=== PATIENT | female | born 1950 | race Caucasian/White ===

== ENCOUNTER 2016-12-09 05:35 | Inpatient (IN) | payer OTHER, MEDICARE ==
[2016-12-09] VITALS (11 sets, daily range): BP systolic 101–152; BP diastolic 52–87; PULSE 67–87; RESP 18–20; TEMP 97.4–98.9; O2SAT 94–97
[~2016-12-09] VITALS: Ht 142.2 cm; Wt 88.5 kg
[~2016-12-09 05:35] MED LIST: ALPR.25 PO; ATEN50TA PO; DULO1CAP PO; ENAL20TA PO; GABA300C5 PO; GLIP5TAB8 PO; HYDR-3516 PO; LEVO-168 PO; METF1000 PO; MILN50 PO; ROSU40 PO
[2016-12-09] MEDS: LACTATED RINGER'S 1000 ML IV SCH (06:15)
[2016-12-09] MEDS ORDERED: INSULIN HUMAN REGULAR 1,000 UNITS/10 ML VIAL SQ PRN (06:30)
[2016-12-09] MEDS ORDERED: METOPROLOL TARTRATE 25 MG TAB PO PRN (06:30)
[2016-12-09] MEDS ORDERED: SODIUM CHLORID 0.9% 500 ML IV SCH (06:30)
[2016-12-09] MEDS ORDERED: PROTAMINE SULFATE 50 MG/5 ML VIAL ONE (06:38)
[2016-12-09] MEDS ORDERED: HEPARIN SODIUM - IV 10,000 UNITS/10 ML VIAL ONE (06:38)
[2016-12-09] MEDS ORDERED: HEPARIN SODIUM - SQ 10,000 UNITS/ML VIAL ONE (06:38)
[2016-12-09] MEDS ORDERED: VANCOMYCIN HCL 1000 MG VIAL ONE (06:38)
[2016-12-09 07:07] LABS: BACTERIA, URINE RARE /hpf; BLOOD, URINE NEG (NEG); GLUCOSE,URINE NEG (NEG); KETONE, URINE NEG (NEG); MUCUS URINE FEW /lpf (OCC); NITRITE,URINE NEG (NEG); SQUAMOUS EPITHELIAL CELL URINE 1 /hpf (0-5); URINE COLOR YELLOW (YELLW/STRAW)
[2016-12-09 07:09] LABS: COMMENT (UR) CULT NOT INDICATED; CULTURE IF INDICATED CULT NOT INDICATED
[2016-12-09] MEDS ORDERED: FAMOTIDINE 20 MG/2 ML VIAL ONE (07:13)
[2016-12-09] MEDS ORDERED: APREPITANT 40 MG CAP ONE (07:14)
[2016-12-09] MEDS ORDERED: VANCOMYCIN 1000 MG in NS IRR BTL 1000 ML IRRIGATION SCH (07:15)
[2016-12-09] MEDS: VANCOMYCIN IV SCH ×4 (07:26→07:44)
[2016-12-09] MEDS: NS IV SCH ×4 (07:26→07:44)
[2016-12-09] MEDS ORDERED: LIDOCAINE HCL 2% 20 ML VIAL ONE ×2 (08:02→08:03)
[2016-12-09] MEDS ORDERED: BUPIVACAINE HCL PF 0.5% 30 ML VIAL ONE (11:52)
[2016-12-09] MEDS ORDERED: ALPRAZolam 0.25 MG TAB PO PRN (12:15)
[2016-12-09] MEDS ORDERED: GLUCAGON 1 MG/ML VIAL OTHER PRN (12:15)
[2016-12-09] MEDS ORDERED: MAGNESIUM HYDROXIDE SUSP 30 ML CUP PO PRN (12:15)
[2016-12-09] MEDS ORDERED: DEXTROSE 50% IN WATER 50 ML VIAL(D50) IV PUSH PRN (12:15)
[2016-12-09] MEDS ORDERED: ACETAMINOPHEN 325 MG TAB PO PRN (12:15)
[2016-12-09] MEDS ORDERED: Post-op Orders (for Pharmacy) MISC OTHER ONE (12:15)
[2016-12-09] MEDS ORDERED: ONDANSETRON HCL 4 MG/2 ML VIAL IV PUSH PRN (12:15)
[2016-12-09] MEDS ORDERED: DO NOT ADM ANY ANTICOAGULANT DRUGS XX PRN (12:36)
--- NOTE | 2016-12-09 12:38 | PD.OP ---
cc: Patricia Alcantar MD; Katerina Ragsdale MD Operative Report Date of Surgery: Dec 09, 2016 Preoperative Diagnosis: (1) Skin erosion due to defibrillator lead Postoperative Diagnosis: (1) Skin erosion due to defibrillator lead Procedure: Removal of pulse generator and lead extraction of RA and RV leads Removal of capsule and pocket closure Placement of left femoral venous sheath. Anesthesia: Dr. Luna Surgeon: Patricia Alcantar Sample Sewer(s): EVANGELINA Mayfield Operation and Findings: The risks, benefits, complications, treatment options, and expected outcomes were discussed with the patient. The possibilities of reaction to medication, pulmonary aspiration, perforation of viscus, bleeding, recurrent infection, the need for additional procedures, failure to diagnose a condition, and creating a complication requiring transfusion or operation were discussed with the patient. The patient concurred with the proposed plan, giving informed consent. The site of surgery properly noted/marked. The patient was taken to the operating room, identified as Mildred Guthrie, and the procedure verified as pulse generator and lead extraction, femoral sheath placement. A Time Out was held and the above information confirmed. Standard monitoring lines and Magallanes catheter were placed. General anesthesia was induced. The patient was prepped and draped in a sterile fashion. Initially, left femoral venous access was acquired using a Seldinger percutaneous technique. a 7 F sheath was placed followed by an Amplatz wire to the right IJ under fluoroscopic guidance. The pocket incision was made along the old scar, and electrocautery was used to dissect out the leads and the pocket of the pulse generator. The generator was delivered into the field and the leads were removed. The atrial lead was unscrewed and both leads were prepared for extraction by cutting off the leads and positioning a locking device in each lead. Initially, the atrial lead was treated using a 9F Tightrail cutter followed by a shorter 11F device to break up adhesions under the clavicle. The leads were bound together in the innominate vein and both leads were treated to free the atrial lead which was removed in its entirety. The RV lead was problematic with numerous adhesions along its tract. Ultimately, a 13F Tightrail was used to get into the RV and release the tined lead from the RV. Hemostasis was controlled with direct pressure. The capsule was excised completely and hemostasis obtained. The wound was closed in layers to obliterate the pocket with running 2-0 Vicryl suture. The subcutaneous tissue was closed using a running 2-0 Vicryl suture. The skin was closed with 4-0 Monocryl. Sterile dressings were placed. The venous wire and sheath were pulled at the end of the procedure as well. At the end of the operation, all sponge, instruments, and needle counts were correct. The patient was transferred to the PACU in stable condition. Findings: Difficult extraction due to many adhesions in the tract and between the leads. Specimens: capsule Patricia Alcantar MD Dec 09, 2016 12:37
[2016-12-09] MEDS ORDERED: MIDAZOLAM HCL 2 MG/2 ML VIAL ONE (12:43)
[2016-12-09] MEDS ORDERED: fentaNYL CITRATE 250 MCG/5 ML AMP ONE (12:43)
[2016-12-09] MEDS ORDERED: PROPOFOL 200 MG/20 ML AMP IV ONE (12:50)
[2016-12-09] MEDS ORDERED: ONDANSETRON HCL 4 MG/2 ML VIAL IV PUSH ONE (12:50)
[2016-12-09] MEDS ORDERED: LACTATED RINGER'S 1000 ML INJ 2,000 ML IV ONE (12:50)
[2016-12-09] MEDS ORDERED: ePHEDrine/NS 50 MG/5 ML SYR IV ONE (12:50)
[2016-12-09] MEDS ORDERED: PHENYLEPH/NS 1000 MCG/10 ML SYR IV ONE (12:50)
[2016-12-09] MEDS ORDERED: NEOSTIGMINE 3 MG/3 ML SYR IV ONE (12:50)
[2016-12-09] MEDS: SODIUM CHLOR 0.9% 1000 ML INJ 1,000 ML IV SCH ×2 (13:00→23:41)
--- NOTE | 2016-12-09 13:28 | RADRPT ---
EXAM DATE/TIME: 12/09/2016 13:05 [place] COMPARISON: No previous studies available for comparison. INDICATIONS : Post pacemaker and lead removal. MEDICAL HISTORY : Cardiovascular disease. SURGICAL HISTORY : Unobtainable. ENCOUNTER: Initial ACUITY: 1 day PAIN SCORE: Non-responsive. LOCATION: Bilateral chest FINDINGS: There is cardiomegaly without overt congestive failure. The lungs are under-aerated. There is no pne umothorax. There is no alveolar consolidation. CONCLUSION: Cardiomegaly, under-aerated without pneumothorax. Willie Leyva MD FACR on December 09, 2016 at 13:18 Board Certified Radiologist. This report was verified electronically.
[2016-12-09] MEDS ORDERED: glipiZIDE 5 MG TAB PO SCH (16:00)
[2016-12-09] MEDS: metFORMIN HCL 500 MG TAB PO SCH (18:12)
[2016-12-09] MEDS: INSULIN NovoLIN REGULAR SUPPLEMENTAL SCALE SQ SCH (18:14)
[2016-12-09] MEDS ORDERED: VANCOMYCIN INJ 1,250 MG in SODIUM CHLOR 0.9% 250 ML INJ 250 ML IV SCH (20:00)
[2016-12-09] MEDS: PANTOPRAZOLE SOD 40 MG DELAYED RELEASE TAB PO SCH (21:21)
[2016-12-09] MEDS: ATORVASTATIN 80 MG TAB PO SCH (21:21)
[2016-12-09] MEDS: ACETAMINOPHEN/HYDROcodone 325 MG/5 MG TAB PO PRN (21:21)
[2016-12-09] MEDS: DOCUSATE CALCIUM 240 MG CAP PO SCH (21:21)
[2016-12-09] MEDS: MILNACIPRAN 100 MG TAB PO SCH (22:17)
[2016-12-09] MEDS: DULoxetine HCl DR 20 MG CAP PO SCH (22:17)
[2016-12-10] VITALS (24 sets, daily range): BP systolic 93–119; BP diastolic 44–59; PULSE 66–90; RESP 20–22; TEMP 97.9–98.8; O2SAT 92–96
[2016-12-10] MEDS: INSULIN NovoLIN REGULAR SUPPLEMENTAL SCALE SQ SCH ×4 (00:31→18:00)
[2016-12-10] MEDS ORDERED: diphenhydrAMINE HCL 25 MG CAP PO SCH (01:00)
[2016-12-10] MEDS ORDERED: VANCOMYCIN INJ 1,250 MG in SODIUM CHLOR 0.9% 250 ML INJ 250 ML IV SCH (01:30)
[2016-12-10] MEDS: LACTATED RINGER'S 1000 ML IV SCH (05:35)
[2016-12-10] MEDS: LEVOTHYROXINE SODIUM 112 MCG TAB PO SCH (06:11)
[2016-12-10] MEDS: glipiZIDE 10 MG TAB PO SCH ×2 (06:35→18:29)
[2016-12-10 07:36] LABS: ALT (GPT) 18 U/L (10-53); ANION GAP 9 MEQ/L (5-15); AST (GOT) 17 U/L (15-37); BICARBONATE 23.1 MEQ/L (21.0-32.0); BLOOD UREA NITROGEN 16 MG/DL (7-18); CHLORIDE 111 MEQ/L (98-107); GLOMERULAR FILTRATION RATE 49 ML/MIN (>89); POTASSIUM 4.1 MEQ/L (3.5-5.1); SODIUM (NA) 143 MEQ/L (136-145)
[2016-12-10 07:38] LABS: ALKALINE PHOSPHATASE 56 U/L (45-117); TOTAL BILIRUBIN ADULT 0.4 MG/DL (0.2-1.0)
[2016-12-10] MEDS: SODIUM CHLOR 0.9% 1000 ML INJ 1,000 ML IV SCH (09:00)
[2016-12-10] MEDS: GABAPENTIN 300 MG CAP PO SCH (09:27)
[2016-12-10] MEDS: metFORMIN HCL 500 MG TAB PO SCH ×2 (09:27→18:29)
[2016-12-10] MEDS: ACETAMINOPHEN/HYDROcodone 325 MG/5 MG TAB PO PRN ×2 (09:28→18:33)
[2016-12-10] MEDS ORDERED: PILL SPLITTER OTHER PRN (10:00)
--- NOTE | 2016-12-10 10:04 | PD.CAR.PN ---
CVT Progress Note Subjective/Hospital Course: 66 f/ hx of pacemaker implantation 2009 for SSS / presented to Dr Ragsdale for lead erosion through the skin following a mammogram / eval for device and lead removal PMH anxiety arthritis, pacer insitu depression , DM HTn, MR, morbid obesity, sleep apnea surgery: 12/09 Removal of pulse generator and lead extraction of RA and RV leads Removal of capsule and pocket closure Placement of left femoral venous sheath. 12/10 incision intact left upper chest wall , mild tenderness in NSR wval for possible dc later today , or plan per Dr Alcantar Objective: GENERAL: SKIN: Warm and dry./ incision intact left upper chest wall HEAD: Normocephalic. EYES: No scleral icterus. No injection or drainage. NECK: Supple, trachea midline. No JVD or lymphadenopathy. CARDIOVASCULAR: Regular rate and rhythm without murmurs, gallops, or rubs. RESPIRATORY: Breath sounds equal bilaterally. No accessory muscle use. GASTROINTESTINAL: Abdomen soft, non-tender, nondistended. MUSCULOSKELETAL: No cyanosis, or edema. BACK: Nontender without obvious deformity. No CVA tenderness. Vital Signs Date Time Temp Pulse Resp B/P Pulse Ox O2 Delivery O2 Flow Rate FiO2 12/10/16 06:00 81 12/10/16 05:00 84 12/10/16 04:00 83 12/10/16 03:00 98.6 78 22 93/44 92 12/10/16 03:00 80 12/10/16 02:00 81 12/10/16 01:00 81 12/10/16 00:00 79 12/09/16 23:00 78 12/09/16 23:00 98.9 85 18 128/62 95 12/09/16 22:00 85 12/09/16 21:00 85 12/09/16 20:00 95 21 12/09/16 20:00 80 12/09/16 19:00 73 12/09/16 19:00 98.4 83 18 115/57 94 12/09/16 18:00 72 12/09/16 17:01 74 12/09/16 16:26 78 12/09/16 15:36 97.4 74 20 101/52 95 12/09/16 15:36 68 12/09/16 14:30 72 12/09/16 14:30 97.4 67 20 131/58 94 12/09/16 13:45 97.9 74 14 132/72 93 Nasal Cannula 3 12/09/16 13:30 75 14 130/75 93 Nasal Cannula 3 12/09/16 13:15 69 14 132/68 92 Nasal Cannula 3 12/09/16 13:00 71 14 146/65 96 Simple Mask 10 12/09/16 12:45 78 15 148/73 95 Simple Mask 10 12/09/16 12:35 97.6 87 14 155/84 94 Simple Mask 10 Labs: Laboratory Tests Test 12/10/16 06:25 Sodium Level 143 MEQ/L (136-145) Potassium Level 4.1 MEQ/L (3.5-5.1) Chloride Level 111 MEQ/L (98-107) Carbon Dioxide Level 23.1 MEQ/L (21.0-32.0) Anion Gap 9 MEQ/L (5-15) Blood Urea Nitrogen 16 MG/DL (7-18) Creatinine 1.11 MG/DL (0.50-1.00) Estimat Glomerular Filtration 49 ML/MIN (>89) Rate Random Glucose 176 MG/DL (74-106) Calcium Level 7.5 MG/DL (8.5-10.1) Total Bilirubin 0.4 MG/DL (0.2-1.0) Aspartate Amino Transf 17 U/L (15-37) (AST/SGOT) Alanine Aminotransferase 18 U/L (10-53) (ALT/SGPT) Alkaline Phosphatase 56 U/L (45-117) Total Protein 5.6 GM/DL (6.4-8.2) Albumin 2.9 GM/DL (3.4-5.0) Result Diagram: 12/10/16 0625 Telemetry: NSR (1) pacemaker, lead extraction Plan: doing well, possible dc home today pending per Tara Kapoor Dec 10, 2016 10:04
[2016-12-10] MEDS: DULoxetine HCl DR 20 MG CAP PO SCH ×2 (12:58→22:28)
[2016-12-10] MEDS: MILNACIPRAN 100 MG TAB PO SCH ×2 (12:59→22:28)
[2016-12-10] MEDS: ENALAPRIL MALEATE 10 MG TAB PO SCH (13:00)
[2016-12-10] MEDS: ATENOLOL 50 MG TAB PO SCH (13:01)
--- NOTE | 2016-12-10 18:49 | MB ---
cc: CHARLIE MURILLO M.D. DATE OF CONSULTATION 12/10/16 REASON FOR CONSULTATION For possible permanent pacemaker insertion. HISTORY OF PRESENT ILLNESS Mrs. Guthrie is a 66-year-old female with history a permanent pacemaker implanted 13 years ago because of unknown condition, coronary artery disease, morbid obesity, high blood pressure, hyperlipidemia, hypothyroidism. She was referred to go to the office because erosion at the device side and lead was exposed. The patient was sent for lead extraction and possible new device insertion. I was consulted for evaluation and management. The chart was reviewed. The patient was evaluated. ALLERGIES MULTIPLE DRUG RESISTANT ORGANISMS IODINE PENICILLIN SHELLFISH SULFA SOCIAL HISTORY Negative for smoking and drinking. FAMILY HISTORY Noncontributory to her current medical condition. MEDICATIONS At home. 1. Alprazolam 0.25 mg three times a day. 2. Atenolol 25 mg a day. 3. Atorvastatin 40 mg a day. 4. Crestor 20 mg a day. 5. Enalapril 20 mg a day. 6. Fenofibrate 54 mg a day. 7. Fluoxetine 40 mg a day. 8. Neurontin 100 mg three times a day. 9. Hydrocodone 10. Acetaminophen 11. Metformin 1000 mg twice a day. 12. Synthroid 112 mcg a day. 13. Xanax p.r.n. REVIEW OF SYSTEMS She refers currently no chest pain or chest discomfort. No fever. PHYSICAL EXAMINATION GENERAL: Alert, fully oriented. VITAL SIGNS: Blood pressure 119/59, pulse 87, respiratory rate 18. LUNGS: Ventilated CARDIOVASCULAR: S1-S2, no gallop or murmur. ABDOMEN: Soft. No mass. No bruit. Obese. EXTREMITIES: No edema. CARDIOLOGY STUDIES Electrocardiogram previously seen in my office - sinus rhythm, diffuse ST-T-wave changes. Electrocardiogram is date November 11, 2016. LABORATORY DATA Potassium 4.1, creatinine 1.1. ASSESSMENT AND RECOMMENDATIONS Ms. Guthrie is currently stable. She had a lead extraction. Permanent pacemaker was placed for unknown reason. Lead extraction was because of erosion and lead exposure and lead infection. Interrogation of the [facility] [place] pacemaker indicated ventricular pacing less than 1% and also atrial pacing is less than 6.9%, mild atrial pacing happened at around 70 beats per minute. As mentioned before, I not sure of the reason the patient was having the pacemaker. She states she has sleep apnea and 4-5 second pause was observed at that time. At this point. because the patient recently and exposure and infection, I do not see any reason to implant a pacemaker at this point. There is not a clear indication. I discussed the case extensively with her. I discussed the case with Dr. Golden. For now continue observation. Patient is stable, can be discharged home. I will follow the patient as an outpatient. If necessary, at that point device will be implanted. Patient advised any chest pain, shortness of breath to go to the nearest emergency room. Acute MD TAWNY Underwood/ /5:52 PM /6:19 PM
[2016-12-10] MEDS: ATORVASTATIN 80 MG TAB PO SCH (22:28)
[2016-12-10] MEDS: DOCUSATE CALCIUM 240 MG CAP PO SCH (22:29)
[2016-12-10] MEDS: PANTOPRAZOLE SOD 40 MG DELAYED RELEASE TAB PO SCH (22:29)
[2016-12-11] VITALS (11 sets, daily range): BP systolic 107–118; BP diastolic 56–58; PULSE 64–72; RESP 22; TEMP 98–98.2; O2SAT 93–94
[2016-12-11] MEDS: INSULIN NovoLIN REGULAR SUPPLEMENTAL SCALE SQ SCH ×2 (06:00)
[2016-12-11] MEDS: LACTATED RINGER'S 1000 ML IV SCH (06:30)
[2016-12-11] MEDS: glipiZIDE 10 MG TAB PO SCH (06:32)
[2016-12-11] MEDS: LEVOTHYROXINE SODIUM 112 MCG TAB PO SCH (06:32)
[2016-12-11] MEDS: metFORMIN HCL 500 MG TAB PO SCH (09:52)
[2016-12-11] MEDS: MILNACIPRAN 100 MG TAB PO SCH (09:53)
[2016-12-11] MEDS: DULoxetine HCl DR 20 MG CAP PO SCH (09:53)
[2016-12-11] MEDS: GABAPENTIN 300 MG CAP PO SCH (09:53)
--- NOTE | 2016-12-11 10:16 | HHI.FF ---
Face to Face Verification Diagnosis: (1) Skin erosion due to defibrillator lead (2) pacemaker, lead extraction Home Health Nursing Order: Signs/symptoms of disease process CHF education Wound care and dressing changes Instructions: Incentive spirometry Q1 hr x 10, while awake, also use acapella device hourly whole awake Daily incision care: ok to shower daily, no tub bath. Wash all incisions with liquid dial soap, clean wash cloth to each site, rinse and pat dry. Observe for any signs of infection, such as drainage which is dark yellow, rosario, green or foul smelling. Immediately report to the surgeon any drainage from the chest incision, or legs, and for any abnormal drainage from the chest tube sites. Notify surgeon if any temp >101.5 degrees F. When specialty dressing removed/ or if you do not have one, continue to shower daily as above, then rinse and pat incision dry and paint with betadine daily x 5 days. Allow steri strips to fall off if you have any. Avoid lotions, creams, salves, oils, etc. for the first month For any questions regarding incisions/ dressing / meds / post op care or above Symptoms, Wednesday 8am-5pm Heart & Vascular Surgery Office ( Dr. Oliva & Dr. Alcantar), After Hours / Nights (5pm -8am) Weekends and Holidays Please call [facility] ([facility]) Charge Nurse I have seen patient Mildred Guthrie on 12/11/16. My clinical findings support the need for the requested home health care services because: Deconditioned w/ increased weakness I certify that my clinical findings support that this patient is homebound because: Post-op weakness Tara Centeno Dec 11, 2016 10:16
[2016-12-11] MEDS: ATENOLOL 50 MG TAB PO SCH (11:17)
[2016-12-11] MEDS: ENALAPRIL MALEATE 10 MG TAB PO SCH (11:17)
--- NOTE | 2016-12-11 11:36 | PD.CARD.PN ---
Subjective Subjective Remarks Feels ok Objective Vital Signs / I&O Vital Signs Date Time Temp Pulse Resp B/P Pulse Ox O2 Delivery O2 Flow Rate FiO2 12/11/16 10:00 71 12/11/16 09:00 67 12/11/16 08:34 98.2 72 22 118/58 94 12/11/16 08:00 72 12/11/16 06:00 67 12/11/16 05:00 67 12/11/16 04:00 66 12/11/16 03:00 98.0 71 22 107/56 93 12/11/16 03:00 66 12/11/16 02:00 64 12/11/16 01:00 66 12/11/16 00:00 67 12/10/16 23:00 69 12/10/16 23:00 98.8 68 22 94/53 94 12/10/16 22:00 68 12/10/16 21:00 70 12/10/16 20:00 76 12/10/16 19:00 98.6 76 20 105/56 94 12/10/16 19:00 76 12/10/16 18:00 73 12/10/16 17:00 66 12/10/16 16:00 67 12/10/16 15:00 97.9 74 20 112/52 96 12/10/16 15:00 74 12/10/16 14:00 72 12/10/16 13:00 78 12/10/16 12:00 78 I/O 12/10/16 12/10/16 12/10/16 12/11/16 12/11/16 12/11/16 07:00 15:00 23:00 07:00 15:00 23:00 Intake Total 2033 ml 1624 ml 960 ml Output Total 950 ml 800 ml 950 ml Balance 1083 ml 824 ml 10 ml Intake Oral 720 ml 480 ml 960 ml IV Total 1313 ml 1144 ml Output Urine Total 950 ml 800 ml 950 ml # Bowel Movements 0 0 1 Physical Exam GENERAL: Well-nourished, well-developed patient. SKIN: Warm and dry. LCW incision well approximated without erythema or drainage. HEAD: Normocephalic. EYES: No scleral icterus. No injection or drainage. NECK: Supple, trachea midline. No JVD or lymphadenopathy. CARDIOVASCULAR: Regular rate and rhythm without murmurs, gallops, or rubs. RESPIRATORY: Breath sounds equal bilaterally. No accessory muscle use. GASTROINTESTINAL: Abdomen soft, non-tender, nondistended. EXTREMITIES: No cyanosis, or edema. NEUROLOGICAL: Awake, alert, and oriented x 3. Non-focal. Laboratory Date/Time Procedure Status Source Growth 12/09/16 10:12 Gram Stain Received Wound Other Pending 12/09/16 10:12 Wound Culture Received Wound Other Pending 12/09/16 10:12 Acid Fast Stain Received Wound Other Pending 12/09/16 10:12 Mycobacterial Culture Received Wound Other Pending 12/09/16 09:00 Gram Stain - Final Resulted Wound Other 12/09/16 09:00 Wound Culture - Preliminary Resulted Wound Other NO GROWTH IN 48 HOURS. 12/09/16 09:00 Fungal Smear - Final Resulted Wound Other NO FUNGAL ELEMENTS SEEN. 12/09/16 09:00 Fungal Culture Resulted Wound Other Pending 12/09/16 09:00 Acid Fast Stain - Final Resulted Wound Other NO ACID FAST BACILLI SEEN 12/09/16 09:00 Mycobacterial Culture Resulted Wound Other Pending Assessment and Plan Problem List: (1) pacemaker, lead extraction Assessment and Plan: PPM implanted in [facility] several years ago after an PR, due to a 6 second pause seen on telemetry. Interrogation of history showed <1% ventricular pacing, minimal atrial pacing. Per my d/w Dr. Ragsdale, there is no current indication for a pacemaker. He will follow her in office for further care. She can be discharged from EP standpoint when cleared by Dr. Alcantar with outpatient follow up with Dr. Ragsdale. [place] Mix Dec 11, 2016 11:36
== END 2016-12-11 11:26 | disposition home health service (06) | DRG 261 ==
LOC: HCVO 05:35 → EDSTATUS 07:30 → HSDI 12:17 → HCPC 13:58
PROVIDERS: ADMIT Thoracic Surgery (Cardiothoracic Vascular Surgery); ATTEND Thoracic Surgery (Cardiothoracic Vascular Surgery)
PROC: 0JPT0PZ Removal of Cardiac Rhythm Related Device from Trunk Subcutaneous Tissue and Fascia, Open Approach (ICD-10-PCS; 2016-12-09)
PROC: 0JN Subcutaneous Tissue and Fascia, Release (ICD-10-PCS; 2016-12-09)
PROC: 02PA0MZ Removal of Cardiac Lead from Heart, Open Approach (ICD-10-PCS; principal; 2016-12-09 07:48)
DX: T82.897A Other specified complication of cardiac prosthetic devices, implants and grafts, initial encounter (principal); Z68.41 Body mass index [BMI] 40.0-44.9, adult; I10 Essential (primary) hypertension; E66.01 Morbid (severe) obesity due to excess calories; G47.30 Sleep apnea, unspecified; L98.9 Disorder of the skin and subcutaneous tissue, unspecified; E11.9 Type 2 diabetes mellitus without complications; E78.5 Hyperlipidemia, unspecified; I25.2 Old myocardial infarction; I25.10 Atherosclerotic heart disease of native coronary artery without angina pectoris; K21.9 Gastro-esophageal reflux disease without esophagitis; M79.7 Fibromyalgia; E03.9 Hypothyroidism, unspecified; M19.90 Unspecified osteoarthritis, unspecified site; F32.9 Major depressive disorder, single episode, unspecified; F41.9 Anxiety disorder, unspecified; Z79.84 Long term (current) use of oral hypoglycemic drugs; Z88.0 Allergy status to penicillin; Z88.2 Allergy status to sulfonamides; Z91.013 Allergy to seafood
CPT/HCPCS: 36430; 71010; 80053; 81001; 82948; 86850; 86900; 86901; 86920; 87015; 87070; 87102; 87116; 87205; 87206; 88300; 88305; 88341; 88342; 94150; C1769; J1644; J2250; J2370; J2405; J2710; J2720; J3010; J3370; J7030; J7050; J7120; J8501; P9016